=== PATIENT | female | born 1975 | race Hispanic/Latino ===

== ENCOUNTER 2017-09-10 22:38 | Emergency (ER) | payer MEDICARE ==
[~2017-09-10 22:38] MED LIST: AMOXICILLIN/POTASSIUM CLAV 500-125 TABLET PO ONE; DEXAMETHASONE SOD PHOSPHATE 10MG/ML 1ML VIAL IM ONE; DiphenhydrAMINE HCL 50 MG/ML VIAL IVP ONE; KETOROLAC TROMETHAMINE 30MG/ML IV ONE; ONDANSETRON HCL 4 MG/2 ML VIAL IVP ONE; SODIUM CHLORIDE 0.9% 1000ML 1,000 ML IV ONE
[2017-09-10 23:38] LABS: EOSINOPHILS % (AUTO) 0.8 % (0.0-8.0); HEMATOCRIT 43.5 % (36-48); LYMPHOCYTES % (AUTO) 19.8 % (21.0-51.0); MEAN CORPUSCULAR HEMOGLOBIN 30.6 pg (27.0-33.0); MEAN CORPUSCULAR HGB CONC 33.9 g/dL (32.0-36.0); MEAN CORPUSCULAR VOLUME 90.1 fL (79-99); MONOCYTES % (AUTO) 5.9 % (3.0-13.0); NEUTROPHILS % (AUTO) 72.5 % (40.0-77.0); PLATELET COUNT (AUTO) 279 K/uL (130-400); RED BLOOD CELL COUNT(AUTO) 4.83 MIL/uL (4.00-5.50); RED CELL DISTRIBUTION WIDTH 13.2 % (11.0-15.5); WHITE BLOOD COUNT (AUTO) 16.4 K/uL (4.8-10.8)
[2017-09-10 23:40] LABS: APPEARANCE,URINE Clear (CLEAR); BILIRUBIN,URINE Negative (NEGATIVE); COLOR,URINE Yellow (YELLOW); GLUCOSE, URINE (UA) Negative (NEGATIVE); KETONES,URINE Negative (NEGATIVE); LEUKOCYTE ESTERASE ,URINE Large (NEGATIVE); NITRATE,URINE Negative (NEGATIVE); OCCULT BLOOD,URINE Negative (NEGATIVE); PROTEIN,URINE Negative (NEGATIVE)
[2017-09-10 23:50] LABS: CREATININE 0.8 mg/dL (0.5-1.5); POTASSIUM 3.6 mmol/L (3.5-5.1)
[2017-09-10 23:56] LABS: ALBUMIN 3.5 g/dL (3.5-5.0); BILIRUBIN,TOTAL 0.2 mg/dL (0.2-1.0)
[2017-09-11 00:22] LABS: BACTERIA,URINE Few /HPF (None Seen); RBC,URINE 0-1 /HPF (0-1)
== END 2017-09-11 02:18 | disposition home or self-care (01) ==
LOC: EDH 22:38
DX: J01.00 Acute maxillary sinusitis, unspecified (principal); Z90.710 Acquired absence of both cervix and uterus; Z98.890 Other specified postprocedural states
CPT/HCPCS: 36415; 70450; 80053; 81001; 85025; 96374; 96375; 99285; J1100; J1200; J1885; J2405; J7030

== ENCOUNTER → 2018-01-02 | Outpatient (CLI) | payer MEDICARE | END | disposition home or self-care (01) | LOC: OIH 14:36 | PROVIDERS: ATTEND Internal Medicine | DX: M17.0 Bilateral primary osteoarthritis of knee (principal); M06.89 Other specified rheumatoid arthritis, multiple sites; Z90.710 Acquired absence of both cervix and uterus | CPT/HCPCS: 73130; 73560 ==

== ENCOUNTER 2019-12-05 13:13 | Inpatient (IN) | payer MEDICARE ==
[~2019-12-05] VITALS: Ht 157.5 cm; Wt 94.2 kg
[2019-12-05 14:00] LABS: BASOPHILS % (AUTO) 0.3 % (0.0-5.0); HEMATOCRIT 41.3 % (36-48); LYMPHOCYTES % (AUTO) 11.9 % (21.0-51.0); MEAN CORPUSCULAR HEMOGLOBIN 30.7 pg (27.0-33.0); MEAN CORPUSCULAR HGB CONC 34.1 g/dL (32.0-36.0); MEAN CORPUSCULAR VOLUME 89.8 fL (79-99); MONOCYTES % (AUTO) 4.3 % (3.0-13.0); NEUTROPHILS % (AUTO) 82.7 % (40.0-77.0); PLATELET COUNT (AUTO) 171 K/uL (130-400); RED CELL DISTRIBUTION WIDTH 12.8 % (11.0-15.5); WHITE BLOOD COUNT (AUTO) 7.8 K/uL (4.8-10.8)
[2019-12-05 14:11] LABS: PARTIAL THROMBOPLASTIN TIME 34.2 SEC (26.3-35.5); PROTHROMBIN TIME 10.8 SEC (9.6-11.6)
[2019-12-05 14:24] LABS: ALANINE AMINOTRANSFERASE 62 U/L (12-78); ALBUMIN 2.8 g/dL (3.5-5.0); ASPARTATE AMINOTRANSFERASE 75 U/L (10-37); BILIRUBIN,TOTAL 0.4 mg/dL (0.2-1.0); CARBON DIOXIDE 24 mmol/L (21-32); CHLORIDE 103 mmol/L (101-111); CREATINE KINASE, TOTAL 96 U/L (21-232); CREATININE 0.8 mg/dL (0.5-1.5); GLOMERULAR FILTR. RATE CALC 82 mL/min (>60); GLUCOSE,RANDOM 152 mg/dL (70-105); MYOGLOBIN 32 ng/mL (10-92); POTASSIUM 3.6 mmol/L (3.5-5.1); SODIUM SERUM 138 mmol/L (136-145); TOTAL PROTEIN, SERUM 7.4 g/dL (6.0-8.3); TROPONIN I < 0.04 ng/mL (0.00-0.06); UREA NITROGEN, BLOOD 12 mg/dL (7-18)
[2019-12-05 14:26] LABS: ABG BASE EXCESS 1.8 mmol/L (-2.0-3.0); ABG HCO3 25.1 mmol/L (21.0-28.0); ABG OXYGEN SATURATION 95.6 % (95.0-99.0); ABG PCO2 36 mmHg (32-45)
[2019-12-05] MEDS ORDERED: SODIUM CHLORIDE 0.9% 50 ML IV ONE (15:32)
[2019-12-05] MEDS ORDERED: CEFTRIAXONE SODIUM 2 GM VIAL ONE (15:32)
[2019-12-05] MEDS ORDERED: ENOXAPARIN SODIUM 40 MG/0.4 ML SYRINGE SQ ONE (18:22)
[2019-12-05] MEDS ORDERED: DOXYCYCLINE 100MG+NS 250ML 250 ML IV ONE (18:22)
[2019-12-05] MEDS ORDERED: METHYLPREDNISOLONE SOD SUCC 40MG/ML 1ML ONE (18:22)
[2019-12-05 19:28] LABS: APPEARANCE,URINE Clear (CLEAR); BILIRUBIN,URINE Negative (NEGATIVE); COLOR,URINE Yellow (YELLOW); GLUCOSE, URINE (UA) Negative (NEGATIVE); KETONES,URINE Trace mg/dL (NEGATIVE); LEUKOCYTE ESTERASE ,URINE Small (NEGATIVE); NITRATE,URINE Negative (NEGATIVE); OCCULT BLOOD,URINE Negative (NEGATIVE); PROTEIN,URINE POS 2+ mg/dL (NEGATIVE)
[2019-12-05 19:37] LABS: BACTERIA,URINE Few /HPF (None Seen); MUCUS,URINE Moderate LPF (None Seen); SQUAMOUS EPITHELIAL CELL,UR Few /HPF (0-2)
[2019-12-05] MEDS ORDERED: ACETAMINOPHEN 325 MG TAB PO PRN ×3 (20:30→20:45)
[2019-12-05] MEDS ORDERED: DIPHENHYDRAMINE HCL 25 MG CAPSULE PO PRN (20:30)
[2019-12-05] MEDS ORDERED: ALBUTEROL SULFATE 0.083% 2.5 MG/3 ML INH IH PRN (20:30)
[2019-12-05] MEDS: VITAMIN B COMPLEX 1 CAPSULE PO SCH (20:30)
[2019-12-05] MEDS ORDERED: LACTULOSE 20 GM/30 ML UDCUP PO PRN (20:30)
[2019-12-05] MEDS ORDERED: POTASSIUM CHLORIDE 10% ELIXIR 20 MEQ/15 ML UDCUP PO PRN (20:30)
[2019-12-05] MEDS ORDERED: HYDRALAZINE HCL 20 MG/ML VIAL IV PRN (20:30)
[2019-12-05] MEDS ORDERED: POTASSIUM CHLORIDE 20MEQ/100ML 100 ML IV PRN ×2 (20:30)
[2019-12-05] MEDS ORDERED: MAG HYDROX/AL HYDROX/SIMETH ES 30 ML SUSP UDCUP PO PRN (20:30)
[2019-12-05] MEDS ORDERED: ONDANSETRON HCL 4 MG/2 ML VIAL IV PRN (20:30)
[2019-12-05] MEDS ORDERED: GUAIFENESIN-DM 200/20 MG 10 ML PO PRN (20:30)
[2019-12-05] MEDS ORDERED: NITROGLYCERIN 0.4 MG SL TAB SL PRN (20:30)
[2019-12-05] MEDS: CEFTRIAXONE SODIUM 1 GM IVP SCH (20:30)
[2019-12-05] MEDS ORDERED: POTASSIUM CHLORIDE 20 MEQ ERTAB PO PRN (20:30)
[2019-12-05] MEDS ORDERED: ERGOCALCIFEROL (VITAMIN D2) 50,000 UNIT CAPSULE PO ONE (20:30)
[2019-12-05] MEDS ORDERED: DiphenhydrAMINE HCL 50 MG/ML VIAL IV PRN (20:30)
[2019-12-05] MEDS ORDERED: ONDANSETRON HCL 4 MG/2 ML VIAL IVP PRN (20:45)
[2019-12-05] MEDS ORDERED: SODIUM CHLORIDE 0.9% 10 ML VIAL IVP PRN (20:45)
[2019-12-05] MEDS: DOXYCYCLINE HYCLATE 100 MG TABLET PO SCH (21:00)
[2019-12-05] MEDS: METHYLPREDNISOLONE SOD SUCC 40MG/ML 1ML IVP SCH (21:00)
[2019-12-05] MEDS ORDERED: METHYLPREDNISOLONE SOD SUCC 40MG/ML 1ML IVP SCH (21:00)
[2019-12-05] MEDS ORDERED: DOXYCYCLINE 100MG+NS 250ML 250 ML IV SCH (21:00)
[2019-12-05] MEDS: FAMOTIDINE 20MG TAB 20 MG TAB PO SCH (21:00)
[2019-12-05] MEDS: ACETYLCYSTEINE 600 MG CAPSULE PO SCH (21:00)
[2019-12-05] MEDS ORDERED: FAMOTIDINE 20MG TAB 20 MG TAB ONE (21:20)
[2019-12-05] MEDS ORDERED: ERGOCALCIFEROL (VITAMIN D2) 50,000 UNIT CAPSULE ONE (21:20)
[2019-12-05] MEDS ORDERED: THIAMINE HCL 100 MG TABLET ONE (21:20)
[2019-12-05] MEDS ORDERED: ACETYLCYSTEINE 600 MG CAPSULE ONE (21:21)
[2019-12-05] MEDS ORDERED: AZITHROMYCIN 500MG+NS 250ML 250 ML IV ONE (21:21)
[2019-12-05 21:32] LABS: BASOPHILS % (AUTO) 0.1 % (0.0-5.0); HEMATOCRIT 43.4 % (36-48); LYMPHOCYTES % (AUTO) 6.2 % (21.0-51.0); MEAN CORPUSCULAR HEMOGLOBIN 30.1 pg (27.0-33.0); MEAN CORPUSCULAR HGB CONC 33.2 g/dL (32.0-36.0); MEAN CORPUSCULAR VOLUME 90.6 fL (79-99); PLATELET COUNT (AUTO) 173 K/uL (130-400); RED BLOOD CELL COUNT(AUTO) 4.79 MIL/uL (4.00-5.50); RED CELL DISTRIBUTION WIDTH 12.8 % (11.0-15.5); WHITE BLOOD COUNT (AUTO) 9.9 K/uL (4.8-10.8)
--- NOTE | 2019-12-05 23:00 | NUR ---
ADMISSION 44 YEAR OLD FEMALE RECEIVED INTO ROOM 231. PT AAOX3, PLEASANT AND COOPERATIVE. O2 7L NC IN PLACE. SEE ADMISSION DATA BASE, NURSING ASSESSMENT, VITAL SIGNS, AND FLOW SHEETS FOR MORE INFORMATION. PT DENIES ANY PMHX, DENIES ANY HOME MEDS. STATES ONLY SURGICAL HISTORY OF C-SECTIONS
[2019-12-05 23:05] VITALS: BP 114/61
[2019-12-06] VITALS (7 sets, daily range): BP systolic 96–124; BP diastolic 45–67
[2019-12-06] MEDS ORDERED: FLU VACC QS2019-20 36MOS UP/PF 60 MCG/0.5 ML ML IM ONE (02:30)
[2019-12-06 04:25] LABS: BASOPHILS % (AUTO) 0.1 % (0.0-5.0); HEMATOCRIT 40.2 % (36-48); LYMPHOCYTES % (AUTO) 9.1 % (21.0-51.0); MEAN CORPUSCULAR HEMOGLOBIN 29.9 pg (27.0-33.0); MEAN CORPUSCULAR HGB CONC 32.6 g/dL (32.0-36.0); MEAN CORPUSCULAR VOLUME 91.8 fL (79-99); MONOCYTES % (AUTO) 2.4 % (3.0-13.0); NEUTROPHILS % (AUTO) 87.5 % (40.0-77.0); PLATELET COUNT (AUTO) 195 K/uL (130-400); RED BLOOD CELL COUNT(AUTO) 4.38 MIL/uL (4.00-5.50); RED CELL DISTRIBUTION WIDTH 12.8 % (11.0-15.5); WHITE BLOOD COUNT (AUTO) 8.5 K/uL (4.8-10.8)
[2019-12-06 04:51] LABS: ALBUMIN 2.7 g/dL (3.5-5.0); BILIRUBIN,TOTAL 0.4 mg/dL (0.2-1.0); CREATININE 0.7 mg/dL (0.5-1.5); POTASSIUM 3.9 mmol/L (3.5-5.1); TOTAL PROTEIN, SERUM 7.5 g/dL (6.0-8.3)
[2019-12-06] MEDS ORDERED: COMPOUND IV REFRIGERATED 1 EACH IVSOLN MISC PRN (06:45)
[2019-12-06] MEDS: CEFTRIAXONE SODIUM 1 GM IVP SCH ×2 (07:47→20:30)
[2019-12-06] MEDS: PHARMACY COMMUNICATION**REMDESIVIR ORDER MISC SCH ×3 (08:00→20:40)
[2019-12-06] MEDS ORDERED: PHARMACY COMMUNICATION MISC SCH (09:00)
[2019-12-06] MEDS ORDERED: ENOXAPARIN SODIUM 40 MG/0.4 ML SYRINGE SQ SCH (09:00)
[2019-12-06] MEDS ORDERED: PNEUMOCOCCAL VACCINE POLYVALENT 0.5 ML/VIAL [PPV] SQ ONE (09:00)
[2019-12-06] MEDS: ACETYLCYSTEINE 600 MG CAPSULE PO SCH ×2 (09:42→21:43)
[2019-12-06] MEDS: ASCORBIC ACID 500 MG TAB PO SCH (09:42)
[2019-12-06] MEDS: ZINC SULFATE 220 CAPSULE PO SCH (09:42)
[2019-12-06] MEDS: VITAMIN B COMPLEX 1 CAPSULE PO SCH (09:43)
[2019-12-06] MEDS: DOXYCYCLINE HYCLATE 100 MG TABLET PO SCH ×2 (09:43→21:43)
[2019-12-06] MEDS: METHYLPREDNISOLONE SOD SUCC 40MG/ML 1ML IVP SCH ×3 (09:43→21:43)
[2019-12-06] MEDS: ENOXAPARIN SODIUM 40 MG/0.4 ML SYRINGE SQ SCH (09:46)
[2019-12-06] MEDS: FAMOTIDINE 20MG TAB 20 MG TAB PO SCH ×2 (09:47→21:43)
[2019-12-06] MEDS: AZITHROMYCIN 250 MG in SODIUM CHLORIDE 0.9% 100 ML IV SCH (09:47)
[2019-12-06] MEDS ORDERED: SODIUM CHLORIDE 0.9% 0 ML IV ONE (14:54)
[2019-12-06] MEDS ORDERED: SODIUM CHLORIDE 0.9% 250 ML IV ONE (14:56)
--- NOTE | 2019-12-06 17:10 | NUR ---
FIRST UNIT OF [facility] STARTED, VSS
[2019-12-07 03:00] VITALS: BP 113/59
[2019-12-07 04:43] LABS: BASOPHILS % (AUTO) 0.2 % (0.0-5.0); MEAN CORPUSCULAR HEMOGLOBIN 29.9 pg (27.0-33.0); MEAN CORPUSCULAR HGB CONC 32.9 g/dL (32.0-36.0); MEAN CORPUSCULAR VOLUME 90.9 fL (79-99); MONOCYTES % (AUTO) 3.3 % (3.0-13.0); PLATELET COUNT (AUTO) 243 K/uL (130-400); RED BLOOD CELL COUNT(AUTO) 4.51 MIL/uL (4.00-5.50); RED CELL DISTRIBUTION WIDTH 12.6 % (11.0-15.5)
[2019-12-07 05:09] LABS: ALANINE AMINOTRANSFERASE 75 U/L (12-78); ALBUMIN 2.7 g/dL (3.5-5.0); ASPARTATE AMINOTRANSFERASE 58 U/L (10-37); BILIRUBIN,TOTAL 0.3 mg/dL (0.2-1.0); CARBON DIOXIDE 24 mmol/L (21-32); CHLORIDE 103 mmol/L (101-111); CREATININE 0.7 mg/dL (0.5-1.5); GLOMERULAR FILTR. RATE CALC 96 mL/min (>60); GLUCOSE,RANDOM 173 mg/dL (70-105); LACTATE DEHYDROGENASE 370 U/L (81-234); POTASSIUM 3.9 mmol/L (3.5-5.1); SODIUM SERUM 139 mmol/L (136-145); TOTAL PROTEIN, SERUM 7.5 g/dL (6.0-8.3); UREA NITROGEN, BLOOD 18 mg/dL (7-18)
[2019-12-07 07:00] VITALS: BP 99/57
[2019-12-07] MEDS: PHARMACY COMMUNICATION**REMDESIVIR ORDER MISC SCH ×3 (08:00→20:53)
[2019-12-07] MEDS: VITAMIN B COMPLEX 1 CAPSULE PO SCH (08:19)
[2019-12-07] MEDS: DEXAMETHASONE SOD PHOSPHATE 4 MG/ML 1ML VIAL IVP SCH (08:20)
[2019-12-07] MEDS: ACETYLCYSTEINE 600 MG CAPSULE PO SCH ×2 (08:20→20:52)
[2019-12-07] MEDS: FAMOTIDINE 20MG TAB 20 MG TAB PO SCH ×2 (08:20→20:52)
[2019-12-07] MEDS: ENOXAPARIN SODIUM 40 MG/0.4 ML SYRINGE SQ SCH ×2 (08:20→20:52)
[2019-12-07] MEDS: ZINC SULFATE 220 CAPSULE PO SCH (08:20)
[2019-12-07] MEDS: METHYLPREDNISOLONE SOD SUCC 40MG/ML 1ML IVP SCH (08:21)
[2019-12-07] MEDS: DOXYCYCLINE HYCLATE 100 MG TABLET PO SCH ×2 (08:21→20:52)
[2019-12-07] MEDS: CEFTRIAXONE SODIUM 1 GM IVP SCH ×2 (08:21→20:52)
[2019-12-07] MEDS: ASCORBIC ACID 500 MG TAB PO SCH (08:21)
[2019-12-07] MEDS ORDERED: AZITHROMYCIN 500MG+NS 250ML 0 ML IV ONE (09:05)
[2019-12-07] MEDS: AZITHROMYCIN 250 MG in SODIUM CHLORIDE 0.9% 100 ML IV SCH (09:12)
[2019-12-07 11:00] VITALS: BP 111/58
--- NOTE | 2019-12-07 14:04 | NUR ---
RD NOTIFICATION Pt admitted with Positive COVID-19 PNA, Dyspnea. Pt tolerating Regular diet order with no report of GI distress. Fair to Good PO intake at 75-100%. Pt LBM 12/05/19. Obesity Class III. Monitored labs: WBC 13.0, BG 165, AST 58, Alb 2.7. Recommend continue diet order Recommend 60mL ProMod QD Recommend continue Zinc and Vitamin C supplementation RD to continue to monitor. Please notify as additional nutrition concerns arise. Thank you. Addendum: 12/07/19 at [address] Amended: Links added.
[2019-12-07 15:00] VITALS: BP 111/47
--- NOTE | 2019-12-07 15:58 | NUR ---
DC PLAN PATIENT LIVES WITH ARMANDOIENFaye. PATIENT INDEPENDENT ABLE TO PERFORM ADL'S. PATIENT HAS NO SERVICES OR DME'S. FEELS SAFE TO RETURN HOME. Addendum: 12/07/19 at 1600 by CHAUNCEY SNEED RN CM Amended: Links added.
[2019-12-07 19:00] VITALS: BP 144/72
[2019-12-07 23:00] VITALS: BP 118/70
[2019-12-08 03:00] VITALS: BP 116/65
[2019-12-08 04:14] LABS: BASOPHILS % (AUTO) 0.2 % (0.0-5.0); LYMPHOCYTES % (AUTO) 7.7 % (21.0-51.0); MEAN CORPUSCULAR HEMOGLOBIN 30.3 pg (27.0-33.0); MEAN CORPUSCULAR HGB CONC 33.3 g/dL (32.0-36.0); MEAN CORPUSCULAR VOLUME 90.9 fL (79-99); MONOCYTES % (AUTO) 5.3 % (3.0-13.0); PLATELET COUNT (AUTO) 305 K/uL (130-400); RED BLOOD CELL COUNT(AUTO) 4.29 MIL/uL (4.00-5.50); RED CELL DISTRIBUTION WIDTH 12.6 % (11.0-15.5); WHITE BLOOD COUNT (AUTO) 16.3 K/uL (4.8-10.8)
[2019-12-08 04:32] LABS: ALANINE AMINOTRANSFERASE 63 U/L (12-78); ALBUMIN 2.6 g/dL (3.5-5.0); ASPARTATE AMINOTRANSFERASE 38 U/L (10-37); BILIRUBIN,TOTAL 0.3 mg/dL (0.2-1.0); CARBON DIOXIDE 25 mmol/L (21-32); CHLORIDE 103 mmol/L (101-111); CREATININE 0.8 mg/dL (0.5-1.5); GLOMERULAR FILTR. RATE CALC 82 mL/min (>60); GLUCOSE,RANDOM 128 mg/dL (70-105); LACTATE DEHYDROGENASE 369 U/L (81-234); POTASSIUM 3.7 mmol/L (3.5-5.1); SODIUM SERUM 140 mmol/L (136-145); TOTAL PROTEIN, SERUM 7.2 g/dL (6.0-8.3); UREA NITROGEN, BLOOD 20 mg/dL (7-18)
[2019-12-08] MEDS: PHARMACY COMMUNICATION**REMDESIVIR ORDER MISC SCH ×2 (08:00→16:00)
[2019-12-08] MEDS: VITAMIN B COMPLEX 1 CAPSULE PO SCH (08:41)
[2019-12-08] MEDS: DOXYCYCLINE HYCLATE 100 MG TABLET PO SCH ×2 (08:41→21:05)
[2019-12-08] MEDS: ACETYLCYSTEINE 600 MG CAPSULE PO SCH ×2 (08:41→21:05)
[2019-12-08] MEDS: ZINC SULFATE 220 CAPSULE PO SCH (08:41)
[2019-12-08] MEDS: FAMOTIDINE 20MG TAB 20 MG TAB PO SCH ×2 (08:41→21:04)
[2019-12-08] MEDS: CEFTRIAXONE SODIUM 1 GM IVP SCH ×2 (08:42→21:05)
[2019-12-08] MEDS: DEXAMETHASONE SOD PHOSPHATE 4 MG/ML 1ML VIAL IVP SCH (08:42)
[2019-12-08] MEDS: AZITHROMYCIN 250 MG in SODIUM CHLORIDE 0.9% 100 ML IV SCH (08:42)
[2019-12-08] MEDS: ASCORBIC ACID 500 MG TAB PO SCH (08:43)
[2019-12-08] MEDS: ENOXAPARIN SODIUM 40 MG/0.4 ML SYRINGE SQ SCH ×2 (08:44→21:09)
[2019-12-08 09:10] VITALS: BP 108/60
[2019-12-08 12:09] VITALS: BP 106/62
[2019-12-08 15:31] VITALS: BP 106/64
[2019-12-08 19:00] VITALS: BP 125/75
[2019-12-08 23:00] VITALS: BP 123/64
[2019-12-09 03:00] VITALS: BP 125/63
[2019-12-09 07:00] VITALS: BP 108/59
[2019-12-09] MEDS: PHARMACY COMMUNICATION**REMDESIVIR ORDER MISC SCH ×3 (08:00→16:00)
[2019-12-09] MEDS: ASCORBIC ACID 500 MG TAB PO SCH (09:32)
[2019-12-09] MEDS: FAMOTIDINE 20MG TAB 20 MG TAB PO SCH ×2 (09:32→20:47)
[2019-12-09] MEDS: CEFTRIAXONE SODIUM 1 GM IVP SCH ×2 (09:32→20:46)
[2019-12-09] MEDS: ACETYLCYSTEINE 600 MG CAPSULE PO SCH ×2 (09:32→20:47)
[2019-12-09] MEDS: VITAMIN B COMPLEX 1 CAPSULE PO SCH (09:32)
[2019-12-09] MEDS: ZINC SULFATE 220 CAPSULE PO SCH (09:32)
[2019-12-09] MEDS: ENOXAPARIN SODIUM 40 MG/0.4 ML SYRINGE SQ SCH ×2 (09:32→20:48)
[2019-12-09] MEDS: DOXYCYCLINE HYCLATE 100 MG TABLET PO SCH ×2 (09:32→20:47)
[2019-12-09] MEDS: DEXAMETHASONE SOD PHOSPHATE 4 MG/ML 1ML VIAL IVP SCH (09:33)
[2019-12-09] MEDS: AZITHROMYCIN 250 MG in SODIUM CHLORIDE 0.9% 100 ML IV SCH (09:34)
[2019-12-09 10:43] LABS: BASOPHILS % (AUTO) 0.4 % (0.0-5.0); HEMATOCRIT 41.1 % (36-48); LYMPHOCYTES % (AUTO) 8.2 % (21.0-51.0); MEAN CORPUSCULAR HGB CONC 33.8 g/dL (32.0-36.0); MEAN CORPUSCULAR VOLUME 91.7 fL (79-99); MONOCYTES % (AUTO) 5.2 % (3.0-13.0); NEUTROPHILS % (AUTO) 80.1 % (40.0-77.0); PLATELET COUNT (AUTO) 343 K/uL (130-400); RED BLOOD CELL COUNT(AUTO) 4.48 MIL/uL (4.00-5.50); RED CELL DISTRIBUTION WIDTH 12.4 % (11.0-15.5); WHITE BLOOD COUNT (AUTO) 16.4 K/uL (4.8-10.8)
[2019-12-09 11:00] VITALS: BP 124/43
[2019-12-09 11:03] LABS: ALBUMIN 2.7 g/dL (3.5-5.0); BILIRUBIN,TOTAL 0.5 mg/dL (0.2-1.0); CREATININE 0.8 mg/dL (0.5-1.5); POTASSIUM 3.9 mmol/L (3.5-5.1)
[2019-12-09 16:03] VITALS: BP 108/59
[2019-12-09 20:01] VITALS: BP 112/62
[2019-12-10 00:03] VITALS: BP 119/79
[2019-12-10 03:53] VITALS: BP 144/80
[2019-12-10] MEDS: PHARMACY COMMUNICATION**REMDESIVIR ORDER MISC SCH ×4 (08:00→19:55)
[2019-12-10 08:27] VITALS: BP 106/60
[2019-12-10] MEDS: CEFTRIAXONE SODIUM 1 GM IVP SCH ×2 (09:09→20:18)
[2019-12-10] MEDS: DEXAMETHASONE SOD PHOSPHATE 4 MG/ML 1ML VIAL IVP SCH (09:09)
[2019-12-10] MEDS: VITAMIN B COMPLEX 1 CAPSULE PO SCH (09:10)
[2019-12-10] MEDS: DOXYCYCLINE HYCLATE 100 MG TABLET PO SCH ×2 (09:10→20:19)
[2019-12-10] MEDS: ZINC SULFATE 220 CAPSULE PO SCH (09:10)
[2019-12-10] MEDS: ASCORBIC ACID 500 MG TAB PO SCH (09:10)
[2019-12-10] MEDS: FAMOTIDINE 20MG TAB 20 MG TAB PO SCH ×2 (09:10→20:19)
[2019-12-10] MEDS: ACETYLCYSTEINE 600 MG CAPSULE PO SCH ×2 (09:10→20:19)
[2019-12-10] MEDS: ENOXAPARIN SODIUM 40 MG/0.4 ML SYRINGE SQ SCH ×2 (09:11→20:19)
[2019-12-10] MEDS: AZITHROMYCIN 250 MG in SODIUM CHLORIDE 0.9% 100 ML IV SCH (11:25)
[2019-12-10 12:06] VITALS: BP 107/64
[2019-12-10] MEDS ORDERED: PHARMACY COMMUNICATION**REMDESIVIR ORDER MISC SCH (14:30)
[2019-12-10 16:26] VITALS: BP 97/63
[2019-12-10 19:55] VITALS: BP 105/56
[2019-12-11] VITALS (7 sets, daily range): BP systolic 91–126; BP diastolic 51–76
[2019-12-11 05:26] LABS: BASOPHILS % (AUTO) 0.8 % (0.0-5.0); EOSINOPHILS % (AUTO) 0.3 % (0.0-8.0); HEMATOCRIT 47.4 % (36-48); MEAN CORPUSCULAR HEMOGLOBIN 30.5 pg (27.0-33.0); MEAN CORPUSCULAR HGB CONC 33.5 g/dL (32.0-36.0); MONOCYTES % (AUTO) 4.5 % (3.0-13.0); NEUTROPHILS % (AUTO) 80.1 % (40.0-77.0); PLATELET COUNT (AUTO) 402 K/uL (130-400); RED BLOOD CELL COUNT(AUTO) 5.21 MIL/uL (4.00-5.50); RED CELL DISTRIBUTION WIDTH 12.6 % (11.0-15.5); WHITE BLOOD COUNT (AUTO) 22.7 K/uL (4.8-10.8)
[2019-12-11 05:51] LABS: B-TYPE NATRIURETIC PEPTIDE 7 pg/mL (0-100)
[2019-12-11 06:08] LABS: BILIRUBIN,TOTAL 0.5 mg/dL (0.2-1.0); CREATININE 0.8 mg/dL (0.5-1.5); POTASSIUM 4.3 mmol/L (3.5-5.1); TOTAL PROTEIN, SERUM 7.9 g/dL (6.0-8.3)
[2019-12-11] MEDS: CEFTRIAXONE SODIUM 1 GM IVP SCH ×2 (08:58→19:47)
[2019-12-11] MEDS: ZINC SULFATE 220 CAPSULE PO SCH (08:59)
[2019-12-11] MEDS: VITAMIN B COMPLEX 1 CAPSULE PO SCH (08:59)
[2019-12-11] MEDS: FAMOTIDINE 20MG TAB 20 MG TAB PO SCH ×2 (08:59→19:47)
[2019-12-11] MEDS: DOXYCYCLINE HYCLATE 100 MG TABLET PO SCH ×2 (08:59→19:47)
[2019-12-11] MEDS: ACETYLCYSTEINE 600 MG CAPSULE PO SCH ×2 (08:59→19:47)
[2019-12-11] MEDS: ASCORBIC ACID 500 MG TAB PO SCH (08:59)
[2019-12-11] MEDS: DEXAMETHASONE SOD PHOSPHATE 4 MG/ML 1ML VIAL IVP SCH (08:59)
[2019-12-11] MEDS: ENOXAPARIN SODIUM 40 MG/0.4 ML SYRINGE SQ SCH ×2 (09:00→19:47)
[2019-12-11] MEDS ORDERED: COMPOUND IV REFRIGERATED 1 EACH IVSOLN MISC PRN (09:15)
[2019-12-11] MEDS ORDERED: REMDESIVIR (EUA) 520 200 MG in SODIUM CHLORIDE 0.9% 250 ML IV SCH (09:15)
[2019-12-12] VITALS (7 sets, daily range): BP systolic 98–141; BP diastolic 51–61
[2019-12-12 04:45] LABS: BASOPHILS % (AUTO) 0.6 % (0.0-5.0); EOSINOPHILS % (AUTO) 0.8 % (0.0-8.0); LYMPHOCYTES % (AUTO) 5.2 % (21.0-51.0); MEAN CORPUSCULAR HEMOGLOBIN 30.2 pg (27.0-33.0); MEAN CORPUSCULAR HGB CONC 33.1 g/dL (32.0-36.0); MEAN CORPUSCULAR VOLUME 91.1 fL (79-99); MONOCYTES % (AUTO) 4.1 % (3.0-13.0); PLATELET COUNT (AUTO) 457 K/uL (130-400); RED BLOOD CELL COUNT(AUTO) 4.61 MIL/uL (4.00-5.50); RED CELL DISTRIBUTION WIDTH 12.7 % (11.0-15.5); WHITE BLOOD COUNT (AUTO) 20.8 K/uL (4.8-10.8)
[2019-12-12 04:59] LABS: ALBUMIN 2.6 g/dL (3.5-5.0); BILIRUBIN,TOTAL 0.5 mg/dL (0.2-1.0); CREATININE 0.8 mg/dL (0.5-1.5); TOTAL PROTEIN, SERUM 6.8 g/dL (6.0-8.3)
[2019-12-12] MEDS: PHARMACY COMMUNICATION MISC SCH (05:31)
[2019-12-12] MEDS: KETOROLAC TROMETHAMINE 15MG/ML IV PRN ×2 (05:36→10:19)
[2019-12-12] MEDS: CEFTRIAXONE SODIUM 1 GM IVP SCH (08:40)
[2019-12-12] MEDS: ASCORBIC ACID 500 MG TAB PO SCH (08:41)
[2019-12-12] MEDS: DOXYCYCLINE HYCLATE 100 MG TABLET PO SCH (08:41)
[2019-12-12] MEDS: VITAMIN B COMPLEX 1 CAPSULE PO SCH (08:41)
[2019-12-12] MEDS: FAMOTIDINE 20MG TAB 20 MG TAB PO SCH ×2 (08:41→19:52)
[2019-12-12] MEDS: ZINC SULFATE 220 CAPSULE PO SCH (08:41)
[2019-12-12] MEDS: ACETYLCYSTEINE 600 MG CAPSULE PO SCH ×2 (08:41→19:52)
[2019-12-12] MEDS: DEXAMETHASONE SOD PHOSPHATE 4 MG/ML 1ML VIAL IVP SCH (08:41)
[2019-12-12] MEDS: ENOXAPARIN SODIUM 40 MG/0.4 ML SYRINGE SQ SCH ×2 (08:42→19:52)
[2019-12-12] MEDS ORDERED: REMDESIVIR (EUA) 520 100 MG in SODIUM CHLORIDE 0.9% 250 ML IV SCH (09:15)
[2019-12-12] MEDS: REMDESIVIR (EUA) 520 100 MG in SODIUM CHLORIDE 0.9% 250 ML IV SCH (11:47)
[2019-12-12] MEDS ORDERED: IOHEXOL-350 75 ML VIAL IV ONE (14:04)
[2019-12-13 03:56] VITALS: BP 98/52
[2019-12-13 05:01] LABS: BASOPHILS % (AUTO) 0.4 % (0.0-5.0); EOSINOPHILS % (AUTO) 0.8 % (0.0-8.0); LYMPHOCYTES % (AUTO) 5.4 % (21.0-51.0); MEAN CORPUSCULAR HEMOGLOBIN 30.1 pg (27.0-33.0); MEAN CORPUSCULAR HGB CONC 32.9 g/dL (32.0-36.0); MEAN CORPUSCULAR VOLUME 91.5 fL (79-99); NEUTROPHILS % (AUTO) 85.3 % (40.0-77.0); PLATELET COUNT (AUTO) 462 K/uL (130-400); RED BLOOD CELL COUNT(AUTO) 4.48 MIL/uL (4.00-5.50); RED CELL DISTRIBUTION WIDTH 12.8 % (11.0-15.5); WHITE BLOOD COUNT (AUTO) 17.8 K/uL (4.8-10.8)
[2019-12-13] MEDS: PHARMACY COMMUNICATION MISC SCH (05:25)
[2019-12-13 05:49] LABS: ALBUMIN 2.5 g/dL (3.5-5.0); BILIRUBIN,TOTAL 0.4 mg/dL (0.2-1.0); CREATININE 0.7 mg/dL (0.5-1.5); POTASSIUM 4.1 mmol/L (3.5-5.1); TOTAL PROTEIN, SERUM 6.5 g/dL (6.0-8.3)
[2019-12-13 08:30] VITALS: BP 112/66
[2019-12-13] MEDS: ACETYLCYSTEINE 600 MG CAPSULE PO SCH ×2 (09:11→20:40)
[2019-12-13] MEDS: FAMOTIDINE 20MG TAB 20 MG TAB PO SCH ×2 (09:11→20:40)
[2019-12-13] MEDS: VITAMIN B COMPLEX 1 CAPSULE PO SCH (09:11)
[2019-12-13] MEDS: DEXAMETHASONE SOD PHOSPHATE 4 MG/ML 1ML VIAL IVP SCH (09:11)
[2019-12-13] MEDS: ASCORBIC ACID 500 MG TAB PO SCH (09:11)
[2019-12-13] MEDS: ZINC SULFATE 220 CAPSULE PO SCH (09:11)
[2019-12-13] MEDS: ENOXAPARIN SODIUM 40 MG/0.4 ML SYRINGE SQ SCH ×2 (09:13→20:40)
[2019-12-13] MEDS: REMDESIVIR (EUA) 520 100 MG in SODIUM CHLORIDE 0.9% 250 ML IV SCH (11:52)
[2019-12-13 12:40] VITALS: BP 127/74
[2019-12-13 16:30] VITALS: BP 132/77
[2019-12-13 19:56] VITALS: BP 102/62
[2019-12-13] MEDS ORDERED: MORPHINE SULFATE 2 MG/ML 1ML SYG IV ONE (23:15)
[2019-12-13 23:59] VITALS: BP 101/60
[2019-12-14 03:00] VITALS: BP 108/62
[2019-12-14] MEDS: PHARMACY COMMUNICATION MISC SCH (05:27)
[2019-12-14 07:09] LABS: BASOPHILS % (AUTO) 0.4 % (0.0-5.0); HEMATOCRIT 43.8 % (36-48); LYMPHOCYTES % (AUTO) 6.7 % (21.0-51.0); MEAN CORPUSCULAR HGB CONC 33.8 g/dL (32.0-36.0); MEAN CORPUSCULAR VOLUME 91.8 fL (79-99); MONOCYTES % (AUTO) 4.6 % (3.0-13.0); NEUTROPHILS % (AUTO) 83.7 % (40.0-77.0); PLATELET COUNT (AUTO) 485 K/uL (130-400); RED BLOOD CELL COUNT(AUTO) 4.77 MIL/uL (4.00-5.50); RED CELL DISTRIBUTION WIDTH 12.8 % (11.0-15.5); WHITE BLOOD COUNT (AUTO) 15.7 K/uL (4.8-10.8)
[2019-12-14 07:23] LABS: ALBUMIN 2.8 g/dL (3.5-5.0); BILIRUBIN,TOTAL 0.4 mg/dL (0.2-1.0); CREATININE 0.8 mg/dL (0.5-1.5); POTASSIUM 4.3 mmol/L (3.5-5.1)
[2019-12-14 08:36] VITALS: BP 119/59
[2019-12-14] MEDS ORDERED: ENOXAPARIN SODIUM 40 MG/0.4 ML SYRINGE SQ SCH (09:00)
[2019-12-14] MEDS: ASCORBIC ACID 500 MG TAB PO SCH (09:33)
[2019-12-14] MEDS: VITAMIN B COMPLEX 1 CAPSULE PO SCH (09:33)
[2019-12-14] MEDS: ACETYLCYSTEINE 600 MG CAPSULE PO SCH ×2 (09:33→20:19)
[2019-12-14] MEDS: ZINC SULFATE 220 CAPSULE PO SCH (09:33)
[2019-12-14] MEDS: DEXAMETHASONE SOD PHOSPHATE 4 MG/ML 1ML VIAL IVP SCH (09:33)
[2019-12-14] MEDS: ENOXAPARIN SODIUM 80 MG/0.8 ML SQ SCH (09:34)
[2019-12-14] MEDS: FAMOTIDINE 20MG TAB 20 MG TAB PO SCH ×2 (09:34→20:19)
[2019-12-14] MEDS: ENOXAPARIN SODIUM 60 MG/0.6 ML SQ SCH (09:34)
[2019-12-14] MEDS: REMDESIVIR (EUA) 520 100 MG in SODIUM CHLORIDE 0.9% 250 ML IV SCH (11:30)
[2019-12-14 12:31] VITALS: BP 103/57
[2019-12-14 16:54] VITALS: BP 95/34
[2019-12-14 19:00] VITALS: BP 118/63
[2019-12-14 23:00] VITALS: BP 113/70
[2019-12-15 03:00] VITALS: BP 90/57
[2019-12-15 05:31] LABS: BASOPHILS % (AUTO) 0.2 % (0.0-5.0); EOSINOPHILS % (AUTO) 0.2 % (0.0-8.0); HEMATOCRIT 41.6 % (36-48); LYMPHOCYTES % (AUTO) 7.8 % (21.0-51.0); MEAN CORPUSCULAR HEMOGLOBIN 29.5 pg (27.0-33.0); MEAN CORPUSCULAR HGB CONC 32.5 g/dL (32.0-36.0); MONOCYTES % (AUTO) 5.6 % (3.0-13.0); NEUTROPHILS % (AUTO) 83.2 % (40.0-77.0); PLATELET COUNT (AUTO) 485 K/uL (130-400); RED BLOOD CELL COUNT(AUTO) 4.57 MIL/uL (4.00-5.50); RED CELL DISTRIBUTION WIDTH 12.7 % (11.0-15.5); WHITE BLOOD COUNT (AUTO) 14.1 K/uL (4.8-10.8)
[2019-12-15 05:54] LABS: CREATININE 0.7 mg/dL (0.5-1.5); CRP QUANTITATIVE 63.8 mg/L (0.00-9.0); POTASSIUM 3.9 mmol/L (3.5-5.1)
[2019-12-15] MEDS: PHARMACY COMMUNICATION MISC SCH (06:00)
[2019-12-15] MEDS: VITAMIN B COMPLEX 1 CAPSULE PO SCH (09:44)
[2019-12-15] MEDS: DEXAMETHASONE SOD PHOSPHATE 4 MG/ML 1ML VIAL IVP SCH (09:44)
[2019-12-15] MEDS: ZINC SULFATE 220 CAPSULE PO SCH (09:44)
[2019-12-15] MEDS: ACETYLCYSTEINE 600 MG CAPSULE PO SCH ×2 (09:44→20:08)
[2019-12-15] MEDS: ASCORBIC ACID 500 MG TAB PO SCH (09:44)
[2019-12-15] MEDS: FAMOTIDINE 20MG TAB 20 MG TAB PO SCH ×2 (09:45→20:08)
[2019-12-15] MEDS: ENOXAPARIN SODIUM 80 MG/0.8 ML SQ SCH (09:45)
[2019-12-15] MEDS: ENOXAPARIN SODIUM 60 MG/0.6 ML SQ SCH (09:45)
[2019-12-15 09:52] VITALS: BP 101/57
[2019-12-15] MEDS: REMDESIVIR (EUA) 520 100 MG in SODIUM CHLORIDE 0.9% 250 ML IV SCH (11:30)
[2019-12-15 12:39] VITALS: BP 110/69
[2019-12-15 17:26] VITALS: BP 110/87
[2019-12-15 19:00] VITALS: BP 108/54
[2019-12-15 23:00] VITALS: BP 97/63
[2019-12-16 03:00] VITALS: BP 93/52
[2019-12-16 04:42] LABS: BASOPHILS % (AUTO) 0.2 % (0.0-5.0); EOSINOPHILS % (AUTO) 0.1 % (0.0-8.0); HEMATOCRIT 42.6 % (36-48); LYMPHOCYTES % (AUTO) 8.5 % (21.0-51.0); MEAN CORPUSCULAR HGB CONC 33.1 g/dL (32.0-36.0); MEAN CORPUSCULAR VOLUME 90.6 fL (79-99); MONOCYTES % (AUTO) 5.7 % (3.0-13.0); NEUTROPHILS % (AUTO) 83.1 % (40.0-77.0); PLATELET COUNT (AUTO) 493 K/uL (130-400); RED CELL DISTRIBUTION WIDTH 12.6 % (11.0-15.5); WHITE BLOOD COUNT (AUTO) 15.1 K/uL (4.8-10.8)
[2019-12-16 04:59] LABS: CREATININE 0.9 mg/dL (0.5-1.5); CRP QUANTITATIVE 43.3 mg/L (0.00-9.0); POTASSIUM 3.9 mmol/L (3.5-5.1)
--- NOTE | 2019-12-16 05:15 | NUR ---
Patient ambulated to bedside commode. Patient oxygen saturation decrease to 53% on 4L NC. Patient place on Nonrebreather due to oxygen at 60% Patient placed in prone position. Will continue to monitor.
[2019-12-16] MEDS: PHARMACY COMMUNICATION MISC SCH (05:40)
[2019-12-16] MEDS: ZINC SULFATE 220 CAPSULE PO SCH (09:54)
[2019-12-16] MEDS: VITAMIN B COMPLEX 1 CAPSULE PO SCH (09:54)
[2019-12-16] MEDS: FAMOTIDINE 20MG TAB 20 MG TAB PO SCH ×2 (09:54→21:26)
[2019-12-16] MEDS: ASCORBIC ACID 500 MG TAB PO SCH (09:54)
[2019-12-16] MEDS: DEXAMETHASONE SOD PHOSPHATE 4 MG/ML 1ML VIAL IVP SCH (09:55)
[2019-12-16 10:00] VITALS: BP 98/61
[2019-12-16] MEDS ORDERED: ENOXAPARIN SODIUM 80 MG/0.8 ML SQ SCH (10:03)
[2019-12-16] MEDS: ACETYLCYSTEINE 600 MG CAPSULE PO SCH ×2 (10:08→21:26)
[2019-12-16 12:00] VITALS: BP 108/62
--- NOTE | 2019-12-16 14:26 | NUR ---
Dr Kaur by bedside Addendum: 12/16/19 at 1513 by NATALIA RODRIGUEZ RN RN ERROR
--- NOTE | 2019-12-16 15:39 | NUR ---
Dr Pittman called to verify lovenox of 135mg order in am. No Answer. Pharmacy changed lovenox order to 80mg. Attempted to call Dr Pittman again at 1539. No answer
[2019-12-16 16:00] VITALS: BP 94/48
--- NOTE | 2019-12-16 16:18 | NUR ---
Pt sitting up on recliner. NAD. O2 Sat remained 97-100% on 15LNC. Decrease O2 NC to 7LNC
--- NOTE | 2019-12-16 17:35 | NUR ---
Dr Wood by bedside. Confirmed total of 135u of lovenox daily. Pharmacy [facility] made aware.
[2019-12-16] MEDS ORDERED: ENOXAPARIN SODIUM 60 MG/0.6 ML SQ SCH (17:45)
[2019-12-16 20:35] VITALS: BP 89/58
[2019-12-16 23:06] VITALS: BP 115/59
[2019-12-17 04:07] LABS: BASOPHILS % (AUTO) 0.1 % (0.0-5.0); HEMATOCRIT 41.7 % (36-48); LYMPHOCYTES % (AUTO) 7.2 % (21.0-51.0); MEAN CORPUSCULAR HEMOGLOBIN 30.4 pg (27.0-33.0); MEAN CORPUSCULAR HGB CONC 33.8 g/dL (32.0-36.0); MEAN CORPUSCULAR VOLUME 89.9 fL (79-99); MONOCYTES % (AUTO) 5.4 % (3.0-13.0); NEUTROPHILS % (AUTO) 85.2 % (40.0-77.0); PLATELET COUNT (AUTO) 432 K/uL (130-400); RED BLOOD CELL COUNT(AUTO) 4.64 MIL/uL (4.00-5.50); RED CELL DISTRIBUTION WIDTH 12.9 % (11.0-15.5); WHITE BLOOD COUNT (AUTO) 14.8 K/uL (4.8-10.8)
[2019-12-17 04:22] LABS: CREATININE 0.8 mg/dL (0.5-1.5); CRP QUANTITATIVE 28.8 mg/L (0.00-9.0)
[2019-12-17 04:49] VITALS: BP 110/62
--- NOTE | 2019-12-17 06:41 | NUR ---
Patient had a restful night with no acute distress this shift. Following POC.
[2019-12-17 07:00] VITALS: BP 108/65
[2019-12-17] MEDS: VITAMIN B COMPLEX 1 CAPSULE PO SCH (08:23)
[2019-12-17] MEDS: FAMOTIDINE 20MG TAB 20 MG TAB PO SCH ×2 (08:23→19:59)
[2019-12-17] MEDS: ZINC SULFATE 220 CAPSULE PO SCH (08:24)
[2019-12-17] MEDS: ASCORBIC ACID 500 MG TAB PO SCH (08:24)
[2019-12-17] MEDS: ACETYLCYSTEINE 600 MG CAPSULE PO SCH ×2 (08:24→19:59)
[2019-12-17] MEDS: ENOXAPARIN SODIUM 120 MG/0.8ML SQ SCH (08:29)
[2019-12-17] MEDS: ENOXAPARIN SODIUM 30 MG/0.3 ML SQ SCH (08:30)
[2019-12-17] MEDS ORDERED: ENOXAPARIN SODIUM 60 MG/0.6 ML SQ SCH (09:00)
[2019-12-17] MEDS ORDERED: ENOXAPARIN SODIUM 80 MG/0.8 ML SQ SCH (09:00)
--- NOTE | 2019-12-17 09:11 | NUR ---
De Sat Pt ambulated 2 steps from bed to recliner chair. O2 Sat reading 70-80% on 5LNC. Pt placed on Non rebreather. O2 Sat improved to 91%. Informed pt to keep NRB at this time and will reevaluate how she does
[2019-12-17 11:00] VITALS: BP 98/52
--- NOTE | 2019-12-17 11:51 | NUR ---
NRB to NC Pt Converted to 15L NC from NRB Pt tolerating well 88-93%. Pt educated to importance of keeping o2 on. Pt verbalizes understanding Awaiting PT eval at this time. Informed pt plan of care
--- NOTE | 2019-12-17 13:46 | NUR ---
NC 10L Pt laying prone position, o2 Sat 96% on 10LNC
[2019-12-17 15:00] VITALS: BP 93/55
--- NOTE | 2019-12-17 15:11 | NUR ---
PT Eval PT by bedside for pt eval. Tolerated activity of sitting to standing. De Sat noted during activity to 83%. Increased 02 Sat 92-94% while sitting on 7LNC
[2019-12-17 21:26] VITALS: BP 95/40
[2019-12-18 01:06] VITALS: BP 94/44
[2019-12-18 04:23] VITALS: BP 110/63
--- NOTE | 2019-12-18 07:42 | NUR ---
First contact with pt this AM Pt sitting upright in bed. AAOX4, Airway patent breathing mildly labored on 7LNC Pt 02 Sat 86-88% on 7lNC. Pt advised and educated on importance of o2. "It's too much air" Pt agreeable to increase to 15LNC at this time. O2 Sat 95%. Encouraged pt to prone frequently. Pt verbalizes understanding
[2019-12-18 08:07] VITALS: BP 101/60
[2019-12-18] MEDS: ZINC SULFATE 220 CAPSULE PO SCH (08:44)
[2019-12-18] MEDS: FAMOTIDINE 20MG TAB 20 MG TAB PO SCH (08:44)
[2019-12-18] MEDS: ASCORBIC ACID 500 MG TAB PO SCH (08:45)
[2019-12-18] MEDS: VITAMIN B COMPLEX 1 CAPSULE PO SCH (08:45)
[2019-12-18] MEDS: ACETYLCYSTEINE 600 MG CAPSULE PO SCH (08:45)
[2019-12-18] MEDS: ENOXAPARIN SODIUM 120 MG/0.8ML SQ SCH (08:47)
[2019-12-18] MEDS: ENOXAPARIN SODIUM 30 MG/0.3 ML SQ SCH (08:49)
--- NOTE | 2019-12-18 10:19 | NUR ---
Rounding Dr Zhang by bedside. Informed MD that pt has been tolerating 5L-7L NC at rest with O2 Sat 95-100% Upon light activity, pt de sat's to 77-85% needing 10-15LNC during any movement. Advised pt plan of care to be seen by NATHAN Gonzalez for rehab covid care at [facility].
--- NOTE | 2019-12-18 11:32 | NUR ---
DC PLAN DR. FAGAN SPOKE TO PATIENT AGREED TO [facility]. DEBBI SIGNED BY PATIENT. INFO SENT TO [facility]. PENDING CALL BACK. PACKET READY INCLUDING MOT. Addendum: 12/18/19 at 1136 by CHAUNCEY SNEED RN CM Amended: Links added.
--- NOTE | 2019-12-18 12:24 | NUR ---
NE ANDERS Report given to Catrina Soriano [facility] [phone] All questions answered and addressed.
[2019-12-18 12:34] VITALS: BP 91/57
--- NOTE | 2019-12-18 13:10 | NUR ---
Report given to Medics. Paper work sent with medics. Pt signed discharge. Verbalizes understanding of care and transfer. NAD. VS stable
== END 2019-12-18 13:10 | disposition home or self-care (01) | DRG 177 ==
LOC: EDH 13:13 → EDHIP 19:00 → 2AH 23:01
PROVIDERS: ADMIT Family Medicine; ATTEND Family Medicine
PROC: XW13325 Transfusion of Convalescent Plasma (Nonautologous) into Peripheral Vein, Percutaneous Approach, New Technology Group 5 (ICD-10-PCS; 2019-12-06)
PROC: XW033E5 Introduction of Remdesivir Anti-infective into Peripheral Vein, Percutaneous Approach, New Technology Group 5 (ICD-10-PCS; principal; 2019-12-15)
DX: U07.1 COVID-19 (principal); J12.89 Other viral pneumonia; J96.01 Acute respiratory failure with hypoxia; I26.93 Single subsegmental thrombotic pulmonary embolism without acute cor pulmonale; Z68.41 Body mass index [BMI] 40.0-44.9, adult; E11.9 Type 2 diabetes mellitus without complications; E66.01 Morbid (severe) obesity due to excess calories; M47.815 Spondylosis without myelopathy or radiculopathy, thoracolumbar region; Z80.0 Family history of malignant neoplasm of digestive organs
CPT/HCPCS: 36415; 36430; 36600; 71045; 71250; 71275; 80048; 80053; 81001; 82550; 82728; 82803; 82948; 83605; 83615; 83874; 83880; 84145; 84484; 85025; 85378; 85610; 85730; 86140; 86850; 86900; 86901; 86927; 87040; 87088; 87426; 87486; 87581; 87633; 87798; 93005; 94760; A4606; G0378; J0456; J0696; J1100; J1650; J1885; J2920; J3490; J7050; Q2035; Q9967